=== PATIENT | male | born 1975 | race Caucasian/White ===

== ENCOUNTER → 2016-09-19 | Outpatient (CLI) | payer OTHER ==
[~2016-09-19] MED LIST: PRISTIQ50 MG PO; ULTRAM DPS50 MG PO; XANAX0.25 MG PO; ZANAFLEX2 MG PO
== END | disposition home or self-care (01) ==
LOC: RAD.S 12:47
DX: R51 Headache (principal); M50.23 Other cervical disc displacement, cervicothoracic region; M25.78 Osteophyte, vertebrae